=== PATIENT | male | born 1945 | race Hispanic/Latino ===

== ENCOUNTER 2020-02-20 10:29 | Inpatient (IN) | payer OTHER ==
[~2020-02-20] VITALS: Ht 172.7 cm; Wt 103.7 kg
[2020-02-20] MEDS ORDERED: HEPARIN SODIUM 1000UNIT/ML 10ML VIAL ONE (10:34)
[2020-02-20] MEDS ORDERED: BIVALIRUDIN 250 MG/VIAL IV ONE (10:34)
[2020-02-20] MEDS ORDERED: MIDAZOLAM HCL 1 MG/ML 2ML VIAL ONE (10:34)
[2020-02-20] MEDS ORDERED: ATROPINE SULFATE 0.1 MG/ML 10 ML SYG IVP ONE (10:34)
[2020-02-20] MEDS ORDERED: IOHEXOL 350 MG/ML 100ML INFUS..BTL IV ONE (10:34)
[2020-02-20] MEDS ORDERED: SODIUM BICARB 50MEQ 50ML VIAL ONE (10:34)
[2020-02-20] MEDS ORDERED: ONDANSETRON HCL 4 MG/2 ML VIAL ONE (10:34)
[2020-02-20] MEDS ORDERED: METOPROLOL TARTRATE 1 MG/ML 5ML VIAL IV ONE (10:35)
[2020-02-20] MEDS ORDERED: DOPAMINE HCL 400 MG/D5%-WATER 0 ML IV ONE (10:35)
[2020-02-20] MEDS ORDERED: LIDOCAINE HCL 2% 20ML ONE (10:35)
[2020-02-20 10:47] LABS: BASOPHILS % (AUTO) 0.1 % (0.0-5.0); EOSINOPHILS % (AUTO) 0.1 % (0.0-8.0); HEMATOCRIT 24.6 % (42-54); LYMPHOCYTES % (AUTO) 9.8 % (21.0-51.0); MEAN CORPUSCULAR HEMOGLOBIN 28.6 pg (27.0-33.0); MEAN CORPUSCULAR HGB CONC 33.7 g/dL (32.0-36.0); MEAN CORPUSCULAR VOLUME 84.8 fL (79-99); MONOCYTES % (AUTO) 10.1 % (3.0-13.0); PLATELET COUNT (AUTO) 215 K/uL (130-400); RED CELL DISTRIBUTION WIDTH 14.1 % (11.0-15.5); WHITE BLOOD COUNT (AUTO) 10.7 K/uL (4.8-10.8)
[2020-02-20 10:57] LABS: CREATININE 3.5 mg/dL (0.5-1.5); POTASSIUM 3.2 mmol/L (3.5-5.1)
[2020-02-20] MEDS ORDERED: FUROSEMIDE 10 MG/ML 4ML VIAL ONE (11:00)
[2020-02-20] MEDS ORDERED: POTASSIUM CHLORIDE 20 MEQ ERTAB PO SCH (11:15)
[2020-02-20] MEDS ORDERED: FUROSEMIDE 10 MG/ML 4ML VIAL IV SCH ×2 (11:15→17:15)
[2020-02-20 11:20] LABS: ALBUMIN 3.2 g/dL (3.5-5.0); BILIRUBIN,TOTAL 0.6 mg/dL (0.2-1.0); TOTAL PROTEIN, SERUM 6.7 g/dL (6.0-8.3)
[2020-02-20] MEDS: METOPROLOL TARTRATE 25 MG TAB PO SCH ×2 (11:30→21:00)
[2020-02-20 11:35] LABS: INR 1.01 (0.85-1.15); PARTIAL THROMBOPLASTIN TIME 26.8 SEC (26.3-35.5); PROTHROMBIN TIME 10.9 SEC (9.6-11.6)
[2020-02-20] MEDS ORDERED: LEVOFLOXACIN 500 MG/D5W 100 ML 100 ML ONE (11:38)
[2020-02-20] MEDS ORDERED: AMIODARONE HCL 50 MG/ML 3 ML VIAL ONE ×2 (11:38→22:32)
[2020-02-20] MEDS ORDERED: SODIUM CHLORIDE 0.9% 100 ML IV ONE (11:39)
[2020-02-20] MEDS ORDERED: AMIODARONE HCL 150 MG in DEXTROSE 5%-WATER 100 ML IV SCH (11:45)
[2020-02-20] MEDS ORDERED: AMIODARONE HCL 360 MG in DEXTROSE 5%-WATER 200 ML IV SCH (11:45)
[2020-02-20] MEDS ORDERED: POTASSIUM CHLORIDE 20 MEQ ERTAB PO ONE ×3 (11:46→21:09)
[2020-02-20 11:59] LABS: APPEARANCE,URINE TURBID (CLEAR); BILIRUBIN,URINE NEGATIVE (NEGATIVE); COLOR,URINE YELLOW (YELLOW); GLUCOSE, URINE (UA) NEGATIVE (NEGATIVE); KETONES,URINE NEGATIVE (NEGATIVE); LEUKOCYTE ESTERASE ,URINE NEGATIVE (NEGATIVE); NITRATE,URINE NEGATIVE (NEGATIVE); OCCULT BLOOD,URINE NEGATIVE (NEGATIVE); PH,URINE 5.5 (5.0-8.0); PROTEIN,URINE 100 mg/dL (NEGATIVE); UROBILINOGEN,URINE 0.2 mg/dL (0.2-1.0)
[2020-02-20 12:26] LABS: ABG BASE EXCESS 0.1 mmol/L (-2.0-3.0); ABG HCO3 23.5 mmol/L (21.0-28.0); ABG OXYGEN SATURATION 99.7 % (95.0-99.0); ABG PCO2 35 mmHg (35-48)
[2020-02-20 12:30] LABS: AMORPHOUS SEDIMENT,UR Many /LPF (None Seen); BACTERIA,URINE Few /HPF (None Seen); RBC,URINE 0-1 /HPF (0-1); SQUAMOUS EPITHELIAL CELL,UR Rare /HPF (0-2); WBC,URINE 0-1 /HPF (0-1)
[2020-02-20] MEDS: DOXYCYCLINE 100MG+NS 250ML 250 ML IV SCH (13:15)
[2020-02-20] MEDS ORDERED: OSELTAMIVIR PHOSPHATE 75 MG CAP PO SCH (13:15)
[2020-02-20] MEDS ORDERED: NITROGLYCERIN 0.4 MG SL TAB SL PRN (13:15)
[2020-02-20] MEDS: ASPIRIN 325 MG TABLET PO SCH (13:30)
[2020-02-20] MEDS: CEFEPIME HCL 1 GM VIAL IVP SCH (13:30)
[2020-02-20] MEDS ORDERED: COMPOUND PO MISCELLANEOUS 1 EACH MISC MISC PRN (13:30)
[2020-02-20] MEDS ORDERED: ROCURONIUM BROMIDE 10MG/1ML 5ML VL IV ONE (13:35)
[2020-02-20] MEDS ORDERED: SUCCINYLCHOLINE CHLORIDE 20 MG/ML 10 ML VIAL IVP ONE (13:35)
[2020-02-20] MEDS: ENOXAPARIN SODIUM 100 MG/1 ML SQ SCH (14:00)
[2020-02-20] MEDS: OSELTAMIVIR SUSP 15 MG/ML (6 CAPS/29ML) PO SCH ×2 (14:00)
[2020-02-20] MEDS ORDERED: ENOXAPARIN SODIUM 100 MG/1 ML SQ ONE (14:18)
[2020-02-20] MEDS ORDERED: CEFEPIME HCL 1 GM VIAL ONE (15:31)
[2020-02-20] MEDS ORDERED: DOXYCYCLINE 100MG+NS 250ML 250 ML IV ONE (15:31)
[2020-02-20] MEDS: INSULIN HUMULIN R 100 UNIT/ML 3ML SQ SCH ×2 (16:30→21:00)
[2020-02-20] MEDS: POTASSIUM CHLORIDE 20 MEQ ERTAB PO SCH (17:15)
[2020-02-20] MEDS: ATORVASTATIN CALCIUM 40 MG TABLET PO SCH (21:00)
[2020-02-20] MEDS ORDERED: ATORVASTATIN CALCIUM 40 MG TABLET ONE (21:10)
[2020-02-20] MEDS ORDERED: METOPROLOL TARTRATE 25 MG TAB ONE (21:10)
[2020-02-20] MEDS ORDERED: DEXTROSE 5%-WATER 500 ML IV ONE (22:39)
--- NOTE | 2020-02-20 23:50 | NUR ---
Patient Arrived From ER Patient with shortness of breath with an N95 mask on; running a Lasix drip and Amio drip with 3 PIV, unable to hold a conversation due to the shortness of breath asking for the BIPAP to be place back on. Patient on enhanced precaution due to role out Covid-19 with possible pneumonia.
[2020-02-20 23:57] VITALS: BP 109/52
[2020-02-21] VITALS (29 sets, daily range): BP systolic 92–158; BP diastolic 41–97
[2020-02-21] MEDS ORDERED: SODIUM CHLORIDE 0.9% 100 ML IV ONE (00:24)
[2020-02-21] MEDS ORDERED: FUROSEMIDE 10 MG/ML 4ML VIAL ONE (00:26)
[2020-02-21] MEDS ORDERED: FUROSEMIDE 10 MG/ML 2ML VIAL ONE (00:26)
[2020-02-21] MEDS ORDERED: DOXYCYCLINE 100MG+NS 250ML 250 ML IV ONE (01:22)
[2020-02-21] MEDS: DOXYCYCLINE 100MG+NS 250ML 250 ML IV SCH ×2 (01:42→13:21)
[2020-02-21 04:22] LABS: ABG BASE EXCESS -0.2 mmol/L (-2.0-3.0); ABG HCO3 23.4 mmol/L (21.0-28.0); ABG OXYGEN SATURATION 98.9 % (95.0-99.0); ABG PCO2 35 mmHg (35-48)
[2020-02-21 04:58] LABS: HEMATOCRIT 21.4 % (42-54); MEAN CORPUSCULAR HGB CONC 32.2 g/dL (32.0-36.0); PLATELET COUNT (AUTO) 173 K/uL (130-400); RED BLOOD CELL COUNT(AUTO) 2.46 MIL/uL (4.50-6.20); RED CELL DISTRIBUTION WIDTH 14.6 % (11.0-15.5); WHITE BLOOD COUNT (AUTO) 9.3 K/uL (4.8-10.8)
[2020-02-21 05:09] LABS: BAND NEUTROPHILS % (MANUAL) 4 % (0-2); LYMPHOCYTES % (MANUAL) 14 % (22-44); MAN.DIFF COMMENT-IMPRESSION MANUAL DIFFERENTIAL; MONOCYTES % (MANUAL) 2 % (2-9); PLATELET MORPHOLOGY COMMENT ADEQUATE; SEGMENTED NEUTROPHILS % 80 % (40-70)
[2020-02-21 05:13] LABS: INR 1.24 (0.85-1.15); PARTIAL THROMBOPLASTIN TIME 33.4 SEC (26.3-35.5); PROTHROMBIN TIME 13.3 SEC (9.6-11.6)
[2020-02-21 05:38] LABS: ALANINE AMINOTRANSFERASE 36 U/L (12-78); ASPARTATE AMINOTRANSFERASE 131 U/L (10-37); BILIRUBIN,TOTAL 0.4 mg/dL (0.2-1.0); CARBON DIOXIDE 18 mmol/L (21-32); CHLORIDE 112 mmol/L (101-111); CREATININE 2.9 mg/dL (0.5-1.5); GLOMERULAR FILTR. RATE CALC 23 mL/min (>60); GLUCOSE,RANDOM 124 mg/dL (70-105); HDL CHOLESTEROL 43 mg/dL (29-71); LDL DIRECT 41 mg/dL (0-99); MYOGLOBIN 341 ng/mL (10-92); PHOSPHORUS 2.1 mg/dL (2.5-4.9); SODIUM SERUM 144 mmol/L (136-145); THYROID STIMULATING HORMONE 0.28 uIU/mL (0.36-3.74); TOTAL PROTEIN, SERUM 4.7 g/dL (6.0-8.3); UREA NITROGEN, BLOOD 40 mg/dL (7-18); URIC ACID 5.7 mg/dL (2.6-7.2)
[2020-02-21 05:42] LABS: POTASSIUM 2.7 mmol/L (3.5-5.1)
[2020-02-21 05:52] LABS: CREATINE KINASE, TOTAL 588 U/L (21-232)
[2020-02-21 06:09] LABS: CHOLESTEROL < 50 mg/dL (<200); TRIGLYCERIDES < 15 mg/dL (30-200)
[2020-02-21] MEDS: POTASSIUM CHLORIDE 10% ELIXIR 20 MEQ/15 ML UDCUP PO PRN ×2 (06:09→08:07)
[2020-02-21 06:19] LABS: TROPONIN I 56.04 ng/mL (0.00-0.06)
[2020-02-21 06:23] LABS: % IRON SATURATION 8.4 % (30-44)
[2020-02-21] MEDS: INSULIN HUMULIN R 100 UNIT/ML 3ML SQ SCH ×4 (06:30→21:00)
[2020-02-21] MEDS: METOPROLOL TARTRATE 25 MG TAB PO SCH ×2 (08:05→21:15)
[2020-02-21] MEDS: ASPIRIN 325 MG TABLET PO SCH (08:05)
[2020-02-21] MEDS: Vitamin B Complex/Vit C/Folic Acid PO SCH ×2 (08:06)
[2020-02-21] MEDS: POTASSIUM CHLORIDE 20 MEQ ERTAB PO SCH ×6 (08:07→18:00)
[2020-02-21] MEDS: ENOXAPARIN SODIUM 100 MG/1 ML SQ SCH (08:08)
[2020-02-21] MEDS: PANTOPRAZOLE 40 MG/VIAL IVP SCH (08:10)
[2020-02-21] MEDS: OSELTAMIVIR SUSP 15 MG/ML (6 CAPS/29ML) PO SCH ×2 (09:18)
[2020-02-21] MEDS ORDERED: NEUTRA-PHOS PACKET 1 EACH ONE (09:19)
[2020-02-21] MEDS: NEUTRA-PHOS PACKET 1 EACH PO SCH ×3 (10:13→21:15)
[2020-02-21 10:48] LABS: POTASSIUM 4.1 mmol/L (3.5-5.1)
[2020-02-21] MEDS: CEFEPIME HCL 1 GM VIAL IVP SCH (12:33)
[2020-02-21] MEDS: FUROSEMIDE 100 MG in SODIUM CHLORIDE 0.9% 100 ML IV SCH ×2 (12:34→22:45)
[2020-02-21] MEDS ORDERED: POTASSIUM PHOS 15 mMOL+NS250ML 250 ML IV PRN (15:00)
--- NOTE | 2020-02-21 15:09 | NUR ---
CM Note SW attempted to reach, Germaine Garcia, emergency contact for patient to complete assessment but phone number was disconnected. SW will continue to follow up.
--- NOTE | 2020-02-21 16:00 | NUR ---
BEDSIDE REPORT GIVEN TO JAMILA MARTINEZ AND PATIENT TRANSFERRED TO ROOM 223; PATIENT'S SISTER NOTIFIED AND AWARE
--- NOTE | 2020-02-21 16:00 | NUR ---
TRANSFER FROM ICU RECEIVED PT FROM Stephanie HOROWITZ RN, PT IN HIGH STEPHENSON'S POSITION, WITH VENTI MASK IN PLACE, DOES NOT APPEAR TO BE IN ANY DISTRESS NOR ANY NEURO DEFICITS PRESENT. PT RESTING COMFORTABLY, CALL LIGHT WITHIN REACH.
[2020-02-21 16:09] LABS: HEMATOCRIT 26.7 % (42-54)
[2020-02-21 16:16] LABS: CREATININE 3.7 mg/dL (0.5-1.5); POTASSIUM 3.8 mmol/L (3.5-5.1)
[2020-02-21] MEDS: MAGNESIUM 2GM PREMIX 50ML 50 ML IV SCH (18:21)
--- NOTE | 2020-02-21 21:03 | NUR ---
DR. Rebollar doing rounds, saw patient. No new orders received. Addendum: 02/22/20 at 0257 by ERASTO BURT RN Doctor Rebollar states hemoglobin low due to possible lab error. Patient Hgb has been recollected X3 and Hgb is higher than 8. Will continue to monitor.
[2020-02-21] MEDS: AMIODARONE HCL 200 MG TABLET PO SCH (21:12)
[2020-02-21] MEDS: ATORVASTATIN CALCIUM 40 MG TABLET PO SCH (21:14)
[2020-02-21 21:44] LABS: HEMATOCRIT 25.3 % (42-54)
[2020-02-22] MEDS: DOXYCYCLINE 100MG+NS 250ML 250 ML IV SCH ×2 (00:31→13:15)
[2020-02-22 04:03] VITALS: BP 127/85
[2020-02-22 05:04] LABS: HEMATOCRIT 26.3 % (42-54); MEAN CORPUSCULAR HEMOGLOBIN 27.9 pg (27.0-33.0); MEAN CORPUSCULAR HGB CONC 31.9 g/dL (32.0-36.0); MEAN CORPUSCULAR VOLUME 87.4 fL (79-99); PLATELET COUNT (AUTO) 215 K/uL (130-400); RED BLOOD CELL COUNT(AUTO) 3.01 MIL/uL (4.50-6.20); RED CELL DISTRIBUTION WIDTH 14.8 % (11.0-15.5); WHITE BLOOD COUNT (AUTO) 11.7 K/uL (4.8-10.8)
[2020-02-22 05:24] LABS: ABG BASE EXCESS -1.1 mmol/L (-2.0-3.0); ABG HCO3 22.4 mmol/L (21.0-28.0); ABG OXYGEN SATURATION 98.2 % (95.0-99.0); ABG PCO2 34 mmHg (35-48)
[2020-02-22 05:45] LABS: ALBUMIN 2.6 g/dL (3.5-5.0); BILIRUBIN,TOTAL 0.6 mg/dL (0.2-1.0); CREATININE 3.7 mg/dL (0.5-1.5); PHOSPHORUS 3.4 mg/dL (2.5-4.9); POTASSIUM 3.3 mmol/L (3.5-5.1); TOTAL PROTEIN, SERUM 6.4 g/dL (6.0-8.3)
[2020-02-22] MEDS: INSULIN HUMULIN R 100 UNIT/ML 3ML SQ SCH ×4 (06:49→21:00)
--- NOTE | 2020-02-22 07:30 | NUR ---
ASSESSMENT ENCOUNTERED PT IN HIGH STEPHENSON'S POSITION, A&OX3, CALM COOPERATIVE AND DOES NOT APPEAR TO BE IN ANY DISTRESS NOR ANY NEURO DEFICITS PRESENT. PT ON BIPAP AND TRANSITIONING TO VM, PT DENIES PAIN, NAUSEA AND STATES HE IS BREATHING EASIER. PT IS ABLE TO TOLERATE FOODS, FLUIDS AND MEDICATIONS WITH NO THROAT CLEARING OR COUGH, CALL LIGHT WITHIN REACH.
[2020-02-22] MEDS: Vitamin B Complex/Vit C/Folic Acid PO SCH ×2 (09:00→11:33)
[2020-02-22 09:31] VITALS: BP 139/86
[2020-02-22] MEDS: ASPIRIN 325 MG TABLET PO SCH (11:32)
[2020-02-22] MEDS: ENOXAPARIN SODIUM 100 MG/1 ML SQ SCH (11:32)
[2020-02-22] MEDS: METOPROLOL TARTRATE 25 MG TAB PO SCH ×2 (11:33→21:28)
[2020-02-22] MEDS: PANTOPRAZOLE 40 MG/VIAL IVP SCH (11:34)
[2020-02-22] MEDS: POTASSIUM CHLORIDE 10% ELIXIR 20 MEQ/15 ML UDCUP PO PRN (11:34)
[2020-02-22] MEDS: OSELTAMIVIR SUSP 15 MG/ML (6 CAPS/29ML) PO SCH ×2 (11:35)
[2020-02-22] MEDS: AMIODARONE HCL 200 MG TABLET PO SCH ×2 (11:53→21:29)
[2020-02-22 11:55] VITALS: BP 148/88
[2020-02-22] MEDS: CEFEPIME HCL 1 GM VIAL IVP SCH (13:30)
[2020-02-22] MEDS: POTASSIUM CHLORIDE 20 MEQ ERTAB PO SCH (14:13)
[2020-02-22] MEDS: FUROSEMIDE 100 MG in SODIUM CHLORIDE 0.9% 100 ML IV SCH (14:57)
[2020-02-22 16:29] VITALS: BP 146/71
[2020-02-22 19:51] VITALS: BP 145/80
[2020-02-22] MEDS: ATORVASTATIN CALCIUM 40 MG TABLET PO SCH (21:29)
[2020-02-22] MEDS: IRON SUCROSE COMPLEX 100 MG in SODIUM CHLORIDE 0.9% 50 ML IV SCH (21:29)
[2020-02-22 23:14] VITALS: BP 103/66
[2020-02-22] MEDS: FUROSEMIDE 10 MG/ML 4ML VIAL IV SCH (23:20)
[2020-02-23] MEDS: DOXYCYCLINE 100MG+NS 250ML 250 ML IV SCH ×2 (01:04→11:53)
[2020-02-23 03:59] VITALS: BP 144/93
[2020-02-23 04:26] LABS: HEMATOCRIT 26.6 % (42-54); MEAN CORPUSCULAR HEMOGLOBIN 27.5 pg (27.0-33.0); MEAN CORPUSCULAR HGB CONC 31.6 g/dL (32.0-36.0); MEAN CORPUSCULAR VOLUME 86.9 fL (79-99); PLATELET COUNT (AUTO) 229 K/uL (130-400); RED BLOOD CELL COUNT(AUTO) 3.06 MIL/uL (4.50-6.20); RED CELL DISTRIBUTION WIDTH 14.7 % (11.0-15.5); WHITE BLOOD COUNT (AUTO) 10.4 K/uL (4.8-10.8)
[2020-02-23 04:38] LABS: CREATININE 3.7 mg/dL (0.5-1.5)
[2020-02-23] MEDS: POTASSIUM CHLORIDE 20MEQ/100ML 100 ML IV PRN (05:18)
[2020-02-23] MEDS: INSULIN HUMULIN R 100 UNIT/ML 3ML SQ SCH ×4 (07:30→21:00)
[2020-02-23 08:04] VITALS: BP 155/83
[2020-02-23] MEDS: ASPIRIN 325 MG TABLET PO SCH (09:11)
[2020-02-23] MEDS: PANTOPRAZOLE 40 MG/VIAL IVP SCH (09:11)
[2020-02-23] MEDS: AMIODARONE HCL 200 MG TABLET PO SCH ×2 (09:11→21:28)
[2020-02-23] MEDS: Vitamin B Complex/Vit C/Folic Acid PO SCH (09:12)
[2020-02-23] MEDS: METOPROLOL TARTRATE 25 MG TAB PO SCH (09:12)
[2020-02-23] MEDS: ENOXAPARIN SODIUM 100 MG/1 ML SQ SCH (09:13)
[2020-02-23] MEDS: OSELTAMIVIR SUSP 15 MG/ML (6 CAPS/29ML) PO SCH ×2 (09:14)
[2020-02-23] MEDS: POTASSIUM CHLORIDE 10% ELIXIR 20 MEQ/15 ML UDCUP PO PRN ×2 (09:17→22:53)
[2020-02-23] MEDS: FUROSEMIDE 10 MG/ML 4ML VIAL IV SCH ×2 (09:17→14:43)
[2020-02-23 11:40] VITALS: BP 163/81
[2020-02-23] MEDS: CEFEPIME HCL 1 GM VIAL IVP SCH (11:54)
[2020-02-23] MEDS ORDERED: CARVEDILOL 6.25 MG TABLET PO STA (15:25)
[2020-02-23 16:59] VITALS: BP 183/107
[2020-02-23] MEDS: POTASSIUM CHLORIDE 20 MEQ ERTAB PO SCH (17:44)
[2020-02-23 20:24] VITALS: BP 164/90
[2020-02-23] MEDS: IRON SUCROSE COMPLEX 100 MG in SODIUM CHLORIDE 0.9% 50 ML IV SCH (21:29)
[2020-02-23] MEDS: ATORVASTATIN CALCIUM 40 MG TABLET PO SCH (22:41)
[2020-02-23] MEDS: CARVEDILOL 6.25 MG TABLET PO SCH (22:42)
[2020-02-24] MEDS: FUROSEMIDE 10 MG/ML 4ML VIAL IV SCH ×4 (00:19→23:24)
[2020-02-24] MEDS: DOXYCYCLINE 100MG+NS 250ML 250 ML IV SCH ×2 (00:20→12:39)
[2020-02-24 00:26] VITALS: BP 137/76
[2020-02-24 03:56] VITALS: BP 156/85
[2020-02-24 06:12] LABS: HEMATOCRIT 27.6 % (42-54); MEAN CORPUSCULAR HEMOGLOBIN 27.6 pg (27.0-33.0); MEAN CORPUSCULAR HGB CONC 31.5 g/dL (32.0-36.0); MEAN CORPUSCULAR VOLUME 87.6 fL (79-99); PLATELET COUNT (AUTO) 270 K/uL (130-400); RED BLOOD CELL COUNT(AUTO) 3.15 MIL/uL (4.50-6.20); RED CELL DISTRIBUTION WIDTH 14.8 % (11.0-15.5); WHITE BLOOD COUNT (AUTO) 9.8 K/uL (4.8-10.8)
[2020-02-24 07:02] LABS: CREATININE 3.6 mg/dL (0.5-1.5); MAGNESIUM 1.9 mg/dL (1.80-2.40); PHOSPHORUS 3.2 mg/dL (2.5-4.9); POTASSIUM 3.4 mmol/L (3.5-5.1)
[2020-02-24] MEDS: INSULIN HUMULIN R 100 UNIT/ML 3ML SQ SCH ×4 (07:15→21:00)
[2020-02-24 08:28] VITALS: BP 150/82
[2020-02-24] MEDS ORDERED: CLOPIDOGREL BISULFATE 300 MG TAB PO SCH (08:30)
[2020-02-24] MEDS: AMIODARONE HCL 200 MG TABLET PO SCH ×2 (08:51→23:30)
[2020-02-24] MEDS: Vitamin B Complex/Vit C/Folic Acid PO SCH (08:51)
[2020-02-24] MEDS: PANTOPRAZOLE 40 MG/VIAL IVP SCH (08:52)
[2020-02-24] MEDS: OSELTAMIVIR SUSP 15 MG/ML (6 CAPS/29ML) PO SCH ×2 (08:52)
[2020-02-24] MEDS: CARVEDILOL 6.25 MG TABLET PO SCH ×2 (08:53→21:00)
[2020-02-24] MEDS: ASPIRIN 81MG TAB.CHEW PO SCH (09:12)
[2020-02-24] MEDS: ENOXAPARIN SODIUM 30 MG/0.3 ML SQ SCH (09:13)
[2020-02-24 12:01] VITALS: BP 152/76
[2020-02-24] MEDS: CEFEPIME HCL 1 GM VIAL IVP SCH (12:38)
[2020-02-24] MEDS: POTASSIUM CHLORIDE 20 MEQ ERTAB PO SCH ×2 (12:45→16:21)
[2020-02-24 16:00] VITALS: BP 146/78
[2020-02-24 20:08] VITALS: BP 157/92
--- NOTE | 2020-02-24 22:00 | NUR ---
PATIENT IS A TRANSFER FROM 223, A^O3, NO COMPLAINS OF BEING IN DISTRESS OR IN ANY FORMS OF PAIN, IS ON BIPAP O2 SATS AT 100%, NO FAMILY AT BEDSIDE.
[2020-02-24] MEDS: IRON SUCROSE COMPLEX 100 MG in SODIUM CHLORIDE 0.9% 50 ML IV SCH (23:24)
[2020-02-24] MEDS: ATORVASTATIN CALCIUM 40 MG TABLET PO SCH (23:29)
[2020-02-25] VITALS: BP 157/94
[2020-02-25] MEDS: DOXYCYCLINE 100MG+NS 250ML 250 ML IV SCH ×2 (01:07→12:19)
[2020-02-25 03:56] LABS: MEAN CORPUSCULAR HEMOGLOBIN 27.8 pg (27.0-33.0); MEAN CORPUSCULAR HGB CONC 31.7 g/dL (32.0-36.0); MEAN CORPUSCULAR VOLUME 87.6 fL (79-99); NUCLEATED RED BLOOD CELLS 0.3 % (0.0-0.19); PLATELET COUNT (AUTO) 299 K/uL (130-400); RED BLOOD CELL COUNT(AUTO) 3.31 MIL/uL (4.50-6.20); RED CELL DISTRIBUTION WIDTH 14.9 % (11.0-15.5); WHITE BLOOD COUNT (AUTO) 11.8 K/uL (4.8-10.8)
[2020-02-25 04:00] VITALS: BP 156/87
[2020-02-25 04:07] LABS: CREATININE 3.6 mg/dL (0.5-1.5); POTASSIUM 3.4 mmol/L (3.5-5.1)
[2020-02-25] MEDS: FUROSEMIDE 10 MG/ML 4ML VIAL IV SCH ×3 (05:22→21:36)
[2020-02-25] MEDS: INSULIN HUMULIN R 100 UNIT/ML 3ML SQ SCH ×4 (06:08→21:00)
[2020-02-25] MEDS: PANTOPRAZOLE 40 MG/VIAL IVP SCH (07:32)
[2020-02-25] MEDS: ENOXAPARIN SODIUM 30 MG/0.3 ML SQ SCH (07:35)
[2020-02-25] MEDS: Vitamin B Complex/Vit C/Folic Acid PO SCH (07:35)
[2020-02-25] MEDS: AMIODARONE HCL 200 MG TABLET PO SCH ×2 (07:35→19:52)
[2020-02-25] MEDS: CLOPIDOGREL BISULFATE 75 MG TAB PO SCH (07:36)
[2020-02-25] MEDS: CARVEDILOL 6.25 MG TABLET PO SCH ×2 (07:36→19:52)
[2020-02-25] MEDS: ASPIRIN 81MG TAB.CHEW PO SCH (07:36)
[2020-02-25] MEDS: POTASSIUM CHLORIDE 20 MEQ ERTAB PO SCH ×2 (07:36→11:54)
[2020-02-25] MEDS: OSELTAMIVIR SUSP 15 MG/ML (6 CAPS/29ML) PO SCH ×2 (07:37)
[2020-02-25 07:45] VITALS: BP 140/82
--- NOTE | 2020-02-25 07:45 | NUR ---
ASSESSMENT PT IS AAOX3 RESTING IN BED. PATIENT IS ON BIPAP, TACHYPNIC, SOB ON EXERTION. AM MEDS GIVEN WITH WATER AND PLACED BACK ON BIPAP. LUNG SOUNDS COARSE TO ALL LOBES. O2 SAT <92 ON BIPAP. HOB UP AT 35 DEGREES. SIDE RAILS UP X4 DOOR OPEN BLINDS OPEN, CALL LIGHT WITHIN REACH. DR PEÑA ROUNDED, SAW PATIENT ORDERS RECEIVED.
[2020-02-25] MEDS: MILRINONE-D5W 20 MG/100 ML 100 ML IV SCH ×3 (08:58→21:36)
[2020-02-25 11:26] VITALS: BP 150/85
[2020-02-25] MEDS: CEFEPIME HCL 1 GM VIAL IVP SCH (12:19)
--- NOTE | 2020-02-25 12:30 | NUR ---
DR KAUR ROUNDED SAW PATIENT ORDERS RECEIVED
[2020-02-25 15:20] VITALS: BP 144/87
--- NOTE | 2020-02-25 18:10 | NUR ---
HR VIA TELE AFIB 140S DR PEÑA MADE AWARE, ORDERS RECEIVED
[2020-02-25] MEDS ORDERED: AMIODARONE HCL 150 MG in DEXTROSE 5%-WATER 100 ML IV SCH (18:15)
[2020-02-25] MEDS ORDERED: PHARMACY COMMUNICATION MISC SCH (18:15)
[2020-02-25] MEDS: ATORVASTATIN CALCIUM 40 MG TABLET PO SCH (19:51)
[2020-02-25] MEDS: IRON SUCROSE COMPLEX 100 MG in SODIUM CHLORIDE 0.9% 50 ML IV SCH (19:52)
[2020-02-25 20:09] VITALS: BP 151/76
[2020-02-26] MEDS: DOXYCYCLINE 100MG+NS 250ML 250 ML IV SCH ×2 (00:22→12:39)
[2020-02-26 03:52] VITALS: BP 154/96
[2020-02-26 03:52] LABS: HEMATOCRIT 26.2 % (42-54); MEAN CORPUSCULAR HEMOGLOBIN 27.4 pg (27.0-33.0); MEAN CORPUSCULAR HGB CONC 31.3 g/dL (32.0-36.0); MEAN CORPUSCULAR VOLUME 87.6 fL (79-99); NUCLEATED RED BLOOD CELLS 0.2 % (0.0-0.19); PLATELET COUNT (AUTO) 247 K/uL (130-400); RED BLOOD CELL COUNT(AUTO) 2.99 MIL/uL (4.50-6.20); RED CELL DISTRIBUTION WIDTH 15.1 % (11.0-15.5); WHITE BLOOD COUNT (AUTO) 11.4 K/uL (4.8-10.8)
--- NOTE | 2020-02-26 03:55 | NUR ---
patients heart rate up and down, 100 to 130's. patient asymptomatic continue to monitor
[2020-02-26 04:13] LABS: CREATININE 3.8 mg/dL (0.5-1.5); MAGNESIUM 1.9 mg/dL (1.80-2.40); POTASSIUM 3.2 mmol/L (3.5-5.1)
[2020-02-26] MEDS: FUROSEMIDE 10 MG/ML 4ML VIAL IV SCH ×2 (05:25→21:01)
[2020-02-26] MEDS: INSULIN HUMULIN R 100 UNIT/ML 3ML SQ SCH ×4 (06:25→21:00)
[2020-02-26 07:51] VITALS: BP 138/83
[2020-02-26] MEDS ORDERED: FUROSEMIDE 10 MG/ML 4ML VIAL IV SCH (09:30)
--- NOTE | 2020-02-26 09:30 | NUR ---
BIPAP REAPPLIED AT PREVIOUS SETTINGS WITH FIO2 AT 35%. CALL LIGHT WITHIN REACH. Addendum: 02/26/20 at 2019 by ANA SENIOR RN RN CORRECTION:TIME SHOULD READ 1930.
[2020-02-26] MEDS: AMIODARONE HCL 200 MG TABLET PO SCH (09:42)
[2020-02-26] MEDS: Vitamin B Complex/Vit C/Folic Acid PO SCH (09:42)
[2020-02-26] MEDS: ASPIRIN 81MG TAB.CHEW PO SCH (09:42)
[2020-02-26] MEDS: PANTOPRAZOLE 40 MG/VIAL IVP SCH (09:42)
[2020-02-26] MEDS: CARVEDILOL 6.25 MG TABLET PO SCH ×2 (09:43→21:02)
[2020-02-26] MEDS: CLOPIDOGREL BISULFATE 75 MG TAB PO SCH (09:43)
[2020-02-26] MEDS: ENOXAPARIN SODIUM 30 MG/0.3 ML SQ SCH (09:43)
[2020-02-26] MEDS: POTASSIUM CHLORIDE 20 MEQ ERTAB PO SCH (09:44)
[2020-02-26 09:45] LABS: ABG BASE EXCESS 0.4 mmol/L (-2.0-3.0); ABG HCO3 22.5 mmol/L (21.0-28.0); ABG OXYGEN SATURATION 99.2 % (95.0-99.0); ABG PCO2 30 mmHg (35-48)
--- NOTE | 2020-02-26 10:15 | NUR ---
REMOVED BIPAP AND PROVIDED WITH APPLE JUICE AND WATER. PT. WITH EMESIS AFTER FLUID INTAKE. CARE PROVIDED.
[2020-02-26] MEDS: MILRINONE-D5W 20 MG/100 ML 100 ML IV SCH (10:16)
[2020-02-26] MEDS ORDERED: ONDANSETRON HCL 4 MG/2 ML VIAL IVP PRN (10:45)
[2020-02-26] MEDS ORDERED: HEPARIN 25000 UNITS/250 ML D5W 250 ML IV SCH (11:00)
--- NOTE | 2020-02-26 11:30 | NUR ---
Missy HOLGUIN, BULL FIDDLE PLAYER IN ROOM SPEAKING WITH PT.
[2020-02-26] MEDS ORDERED: ONDANSETRON HCL 4 MG/2 ML VIAL ONE (11:32)
[2020-02-26] MEDS ORDERED: ENOXAPARIN SODIUM 100 MG/1 ML SQ SCH ×4 (11:37→21:00)
[2020-02-26 11:41] VITALS: BP 132/74
[2020-02-26] MEDS ORDERED: COMPOUND IV MISC 1 EACH IVSOLN MISC PRN (11:45)
[2020-02-26] MEDS: CEFEPIME HCL 1 GM VIAL IVP SCH (12:39)
--- NOTE | 2020-02-26 13:14 | NUR ---
DR. Bradford TRAN AND Missy HOLGUIN INTERMEDIATE ACCOUNTANT IN ROOM SPEAKING WITH PT. RE:PLAN OF CARE. QUESTIONS ANSWERED BY DR. Bradford TRAN.
[2020-02-26 15:26] VITALS: BP 103/63
[2020-02-26] MEDS: HEPARIN SODIUM 5000UNIT/ML 1ML VIAL SQ SCH (15:29)
--- NOTE | 2020-02-26 16:42 | NUR ---
CM NOTE SW attempted to contact emergency contact listed on face sheet for patient but all numbers listed: [phone] and [phone] are disconnected. RERE spoke to patient's nurse, Waylon and he stated that patient is unable to talk on phone due to being on Bi-pap. Waylon also informed SW that there is no additional phone numbers for patient. SW will continue to complete assessment at a later date when patient is more stable.
--- NOTE | 2020-02-26 17:40 | NUR ---
BIPAP REMOVED PER PT. REQUEST. WILL ATTEMPT TO EAT DINNER. PLACED ON VM AT 50%; INSTRUCTED ON VM ALTERNATING WITH BITES OF FOOD, VERBALIZED UNDERSTANDING.
--- NOTE | 2020-02-26 17:50 | NUR ---
SITTING UP IN BED EATING DINNER W/O C/O. NO DISTRESS NOTED. CALL LIGHT WITHIN REACH.
[2020-02-26 19:59] VITALS: BP 113/56
[2020-02-26] MEDS: ATORVASTATIN CALCIUM 40 MG TABLET PO SCH (21:01)
[2020-02-26] MEDS: IRON SUCROSE COMPLEX 100 MG in SODIUM CHLORIDE 0.9% 50 ML IV SCH (21:01)
[2020-02-26 23:56] VITALS: BP 145/75
[2020-02-27] MEDS: DOXYCYCLINE 100MG+NS 250ML 250 ML IV SCH ×2 (00:22→13:10)
[2020-02-27] MEDS: HEPARIN SODIUM 5000UNIT/ML 1ML VIAL SQ SCH ×2 (01:34→13:18)
[2020-02-27 04:02] LABS: HEMATOCRIT 24.6 % (42-54); MEAN CORPUSCULAR HEMOGLOBIN 28.4 pg (27.0-33.0); MEAN CORPUSCULAR HGB CONC 31.7 g/dL (32.0-36.0); MEAN CORPUSCULAR VOLUME 89.5 fL (79-99); PLATELET COUNT (AUTO) 223 K/uL (130-400); RED BLOOD CELL COUNT(AUTO) 2.75 MIL/uL (4.50-6.20); RED CELL DISTRIBUTION WIDTH 15.1 % (11.0-15.5); WHITE BLOOD COUNT (AUTO) 10.4 K/uL (4.8-10.8)
[2020-02-27 04:06] LABS: CREATININE 3.9 mg/dL (0.5-1.5); POTASSIUM 3.4 mmol/L (3.5-5.1)
[2020-02-27] MEDS: INSULIN HUMULIN R 100 UNIT/ML 3ML SQ SCH ×4 (05:35→21:00)
[2020-02-27 07:55] VITALS: BP 139/70
[2020-02-27] MEDS: PANTOPRAZOLE 40 MG/VIAL IVP SCH (07:57)
[2020-02-27] MEDS: FUROSEMIDE 10 MG/ML 4ML VIAL IV SCH ×2 (07:58→20:56)
[2020-02-27] MEDS: CARVEDILOL 6.25 MG TABLET PO SCH ×2 (07:58→21:06)
[2020-02-27] MEDS: Vitamin B Complex/Vit C/Folic Acid PO SCH (07:58)
[2020-02-27] MEDS: ASPIRIN 81MG TAB.CHEW PO SCH (07:58)
[2020-02-27] MEDS: POTASSIUM CHLORIDE 20 MEQ ERTAB PO SCH (07:59)
--- NOTE | 2020-02-27 10:19 | NUR ---
RD NOTIFICATION RD consults due to LOS X 7. Diet: GI soft/bland, pureed, Labs reviewed (BNP 1030, BUN 70, CRE 3.9, GFR 16). Meds reviewed. Skin is intact. Currently on Bipap with worsening resp. failure. Poor po intake. RD recommends to add 1200ml/d fluid restriction Add renal non dialysis to diet order Monitor po intake and tolerance, monitor labs RD will continue to monitor and follow up Addendum: 02/27/20 at [address] Amended: Links added.
--- NOTE | 2020-02-27 11:01 | NUR ---
DR. KAUR IN ROOM WITH PT.
[2020-02-27 11:34] VITALS: BP 133/65
[2020-02-27] MEDS: CEFEPIME HCL 1 GM VIAL IVP SCH (13:10)
[2020-02-27 15:21] VITALS: BP 140/83
[2020-02-27 19:49] VITALS: BP 152/84
[2020-02-27] MEDS ORDERED: EPOETIN ALFA 10,000 UNIT/ML VIAL SQ SCH (21:00)
[2020-02-27] MEDS: IRON SUCROSE COMPLEX 100 MG in SODIUM CHLORIDE 0.9% 50 ML IV SCH (21:02)
[2020-02-27] MEDS: ATORVASTATIN CALCIUM 40 MG TABLET PO SCH (21:06)
[2020-02-27 23:27] VITALS: BP 146/87
[2020-02-28] MEDS: HEPARIN SODIUM 5000UNIT/ML 1ML VIAL SQ SCH ×2 (02:00→13:45)
[2020-02-28] MEDS: DOXYCYCLINE 100MG+NS 250ML 250 ML IV SCH ×2 (03:04→13:44)
[2020-02-28 03:28] VITALS: BP 150/80
[2020-02-28 03:58] LABS: MEAN CORPUSCULAR HEMOGLOBIN 27.1 pg (27.0-33.0); MEAN CORPUSCULAR HGB CONC 30.4 g/dL (32.0-36.0); MEAN CORPUSCULAR VOLUME 89.1 fL (79-99); PLATELET COUNT (AUTO) 231 K/uL (130-400); RED BLOOD CELL COUNT(AUTO) 3.03 MIL/uL (4.50-6.20); RED CELL DISTRIBUTION WIDTH 15.3 % (11.0-15.5); WHITE BLOOD COUNT (AUTO) 10.4 K/uL (4.8-10.8)
[2020-02-28 04:08] LABS: CREATININE 3.9 mg/dL (0.5-1.5)
[2020-02-28 04:11] LABS: POTASSIUM 2.9 mmol/L (3.5-5.1)
[2020-02-28 04:23] LABS: ABG BASE EXCESS -0.6 mmol/L (-2.0-3.0); ABG HCO3 23.8 mmol/L (21.0-28.0); ABG OXYGEN SATURATION 93.8 % (95.0-99.0); ABG PCO2 39 mmHg (35-48)
[2020-02-28] MEDS: INSULIN HUMULIN R 100 UNIT/ML 3ML SQ SCH ×4 (06:19→21:00)
[2020-02-28] MEDS: POTASSIUM CHLORIDE 20 MEQ ERTAB PO SCH (06:22)
[2020-02-28 07:54] VITALS: BP 155/87
[2020-02-28] MEDS: PANTOPRAZOLE 40 MG/VIAL IVP SCH (09:52)
[2020-02-28] MEDS: Vitamin B Complex/Vit C/Folic Acid PO SCH (09:53)
[2020-02-28] MEDS: ASPIRIN 81MG TAB.CHEW PO SCH (09:53)
[2020-02-28] MEDS: FUROSEMIDE 10 MG/ML 4ML VIAL IV SCH ×2 (09:53→20:05)
[2020-02-28] MEDS: CARVEDILOL 6.25 MG TABLET PO SCH ×2 (09:54→20:05)
[2020-02-28] MEDS: POTASSIUM CHLORIDE 20 MEQ ERTAB PO PRN (09:54)
[2020-02-28 12:16] VITALS: BP 151/92
[2020-02-28] MEDS: CEFEPIME HCL 1 GM VIAL IVP SCH (13:44)
--- NOTE | 2020-02-28 16:03 | NUR ---
DC PLAN VISITED WITH PATIENT. PATIENT ON 35 % 02 ON BIPAP SLEEPING. TRIED CALLING ROOM SINCE HE IS ON CONTACT PRECAUTIONS. NO ANSWER. THE NUMBERS ON THE FACE SHEET ARE DISCONNECTED. PER NURSE A SISTER CALLED FOR PATIENT. BUT THEY DID NOT GET NUMBER. ASKED THEM TO GET NUMBER IF THEY CALL AGAIN. PER COMPLIANCE ASSISTANT SAID THAT THE MD SAID NO TO [facility]. RECOMMENDING SNF. PATIENT ON HIGH YANNICK 02 ON BIPAP. SAID TO WORK ON GETTING PATIENT WEANED DOWN. CM WILL CONTINUE TO FOLLOW. Addendum: 02/28/20 at 1612 by JERRICA DANGELO RN CM Amended: Links added.
[2020-02-28 16:32] VITALS: BP 140/91
[2020-02-28 19:37] VITALS: BP 161/96
[2020-02-28] MEDS: IRON SUCROSE COMPLEX 100 MG in SODIUM CHLORIDE 0.9% 50 ML IV SCH (20:05)
[2020-02-28] MEDS: ATORVASTATIN CALCIUM 40 MG TABLET PO SCH (20:05)
[2020-02-29] VITALS (7 sets, daily range): BP systolic 124–158; BP diastolic 65–96
[2020-02-29] MEDS: DOXYCYCLINE 100MG+NS 250ML 250 ML IV SCH ×3 (03:36→21:21)
[2020-02-29] MEDS: HEPARIN SODIUM 5000UNIT/ML 1ML VIAL SQ SCH ×3 (03:46→21:51)
[2020-02-29 03:56] LABS: MEAN CORPUSCULAR HEMOGLOBIN 28.5 pg (27.0-33.0); MEAN CORPUSCULAR HGB CONC 31.7 g/dL (32.0-36.0); MEAN CORPUSCULAR VOLUME 90.1 fL (79-99); PLATELET COUNT (AUTO) 255 K/uL (130-400); RED BLOOD CELL COUNT(AUTO) 3.33 MIL/uL (4.50-6.20); RED CELL DISTRIBUTION WIDTH 15.6 % (11.0-15.5); WHITE BLOOD COUNT (AUTO) 11.3 K/uL (4.8-10.8)
[2020-02-29 04:18] LABS: CREATININE 3.7 mg/dL (0.5-1.5); POTASSIUM 3.2 mmol/L (3.5-5.1)
[2020-02-29] MEDS: POTASSIUM CHLORIDE 20 MEQ ERTAB PO PRN (05:44)
[2020-02-29] MEDS: INSULIN HUMULIN R 100 UNIT/ML 3ML SQ SCH ×4 (05:49→21:00)
[2020-02-29] MEDS: ASPIRIN 81MG TAB.CHEW PO SCH (09:39)
[2020-02-29] MEDS: Vitamin B Complex/Vit C/Folic Acid PO SCH (09:40)
[2020-02-29] MEDS: POTASSIUM CHLORIDE 20 MEQ ERTAB PO SCH (09:40)
[2020-02-29] MEDS: CARVEDILOL 6.25 MG TABLET PO SCH ×2 (09:40→21:21)
[2020-02-29] MEDS: PANTOPRAZOLE 40 MG/VIAL IVP SCH (09:40)
[2020-02-29] MEDS: CEFEPIME HCL 1 GM VIAL IVP SCH (09:41)
[2020-02-29] MEDS: FUROSEMIDE 10 MG/ML 4ML VIAL IV SCH (09:41)
--- NOTE | 2020-02-29 10:49 | NUR ---
DC PLAN VISITED WITH PATIENT. PATIENT STILL IN ISOLATION ON BIPAP. PER NURSING CAN NOT ANSWER PHONE. LET BENEFITS CLERK KNOW FOR HELP NEED. GAIL FOR FACILITY. THE NUMBERS WE HAVE ARE DISCONNECTED. ASKED NURSES YESTERDAY IF FAMILY CALLS PLEASE GET NUMBER SO THAT WE CAN UPDATE FACE SHEET. Addendum: 02/29/20 at 1051 by JERRICA DANGELO RN CM Amended: Links added.
--- NOTE | 2020-02-29 15:29 | NUR ---
[facility] SW unable to complete initial assessment or discuss post discharge disposition due to all phone numbers on face sheet due to all phone number being disconnected. Patient's nurse informed SW that patient's sister had not called hospital today but nurse will obtain contact phone number when she does so that SW/KAMRAN can follow up with her regarding discharge disposition. SW will continue to follow up.
[2020-02-29] MEDS: FUROSEMIDE 100 MG in SODIUM CHLORIDE 0.9% 100 ML IV SCH (17:33)
[2020-02-29] MEDS: ATORVASTATIN CALCIUM 40 MG TABLET PO SCH (21:21)
[2020-02-29] MEDS: IRON SUCROSE COMPLEX 100 MG in SODIUM CHLORIDE 0.9% 50 ML IV SCH (21:22)
--- NOTE | 2020-02-29 22:00 | NUR ---
NEW IV STARTED. PT CONTINUES ON LASIX DRIP. VOIDING. CLEAR YELLOW. STATES NO PAIN. ON BIPAP, OTHERWISE PT HAS DIFFICULTY BREATHING AND ANXIETY INCREASES. MEDICATIONS TOLERATED WELL. APPLIED VASELINE TO LIPS DUE TO SEVERE DRYNESS.
[2020-03-01 01:22] LABS: ABG BASE EXCESS -0.1 mmol/L (-2.0-3.0); ABG HCO3 23.9 mmol/L (21.0-28.0); ABG OXYGEN SATURATION 93.8 % (95.0-99.0); ABG PCO2 37 mmHg (35-48)
--- NOTE | 2020-03-01 01:25 | NUR ---
ABG DRAWN AT THIS TIME BY JAVIER CASTILLO. NO IMPROVEMENT FROM PREVIOUS ABG FROM 02/27.
[2020-03-01] MEDS: POTASSIUM CHLORIDE 20MEQ/100ML 100 ML IV PRN ×2 (01:38→10:21)
[2020-03-01] MEDS: LIDOCAINE HCL-MPF 1% 2ML VIAL IV PRN ×2 (01:38→10:22)
[2020-03-01] MEDS: FUROSEMIDE 100 MG in SODIUM CHLORIDE 0.9% 100 ML IV SCH ×2 (02:12→14:22)
[2020-03-01 03:00] VITALS: BP 143/80
[2020-03-01 05:05] LABS: HEMATOCRIT 31.4 % (42-54); MEAN CORPUSCULAR HEMOGLOBIN 27.5 pg (27.0-33.0); MEAN CORPUSCULAR HGB CONC 31.2 g/dL (32.0-36.0); MEAN CORPUSCULAR VOLUME 88.2 fL (79-99); NUCLEATED RED BLOOD CELLS 0.2 % (0.0-0.19); PLATELET COUNT (AUTO) 261 K/uL (130-400); RED BLOOD CELL COUNT(AUTO) 3.56 MIL/uL (4.50-6.20); RED CELL DISTRIBUTION WIDTH 16.1 % (11.0-15.5); WHITE BLOOD COUNT (AUTO) 10.9 K/uL (4.8-10.8)
[2020-03-01 05:21] LABS: CREATININE 3.6 mg/dL (0.5-1.5); MAGNESIUM 1.8 mg/dL (1.80-2.40); PHOSPHORUS 3.7 mg/dL (2.5-4.9); POTASSIUM 3.3 mmol/L (3.5-5.1)
[2020-03-01] MEDS: INSULIN HUMULIN R 100 UNIT/ML 3ML SQ SCH ×2 (06:40→11:30)
[2020-03-01] MEDS: MAGNESIUM 2GM PREMIX 50ML 50 ML IV SCH (06:48)
[2020-03-01 07:33] VITALS: BP 158/91
[2020-03-01] MEDS: CARVEDILOL 6.25 MG TABLET PO SCH (09:00)
[2020-03-01] MEDS: Vitamin B Complex/Vit C/Folic Acid PO SCH (09:00)
[2020-03-01] MEDS: POTASSIUM CHLORIDE 20 MEQ ERTAB PO SCH (09:00)
[2020-03-01] MEDS: ASPIRIN 81MG TAB.CHEW PO SCH (09:00)
[2020-03-01] MEDS: PANTOPRAZOLE 40 MG/VIAL IVP SCH (10:21)
[2020-03-01] MEDS: CEFEPIME HCL 1 GM VIAL IVP SCH (10:21)
[2020-03-01] MEDS: DOXYCYCLINE 100MG+NS 250ML 250 ML IV SCH (10:22)
[2020-03-01] MEDS: HEPARIN SODIUM 5000UNIT/ML 1ML VIAL SQ SCH (10:24)
--- NOTE | 2020-03-01 11:00 | NUR ---
DC PLAN SPOKE TO FLIGHT STEWARD. SISTER HAD SAID DNR/DNI. I CALLED SISTER JERRICA FERNANDEZ [phone]. TO VERIFY. WENT TO VOICE MAIL. PATIENT SAID IF HE HAD TO GO SOMEPLACE WOULD LIKE [facility]. IF HE GOES HOME THEN SISTER WANTS BEE FIRST. Addendum: 03/01/20 at 1103 by JERRICA DANGELO RN CM Amended: Links added.
--- NOTE | 2020-03-01 11:03 | NUR ---
DCP: [facility] met with pt who is on Bipap at this time. Pt was able to answer questions asked. Pt states he is now staying at sister Germaine Garcia's home [phone]. Pt gave SW permission to look thru his medicine bag and a cell phone and oxygen tank filler was located. Pt deferred questions to sister. Pt stated that at ne he wanted to go back to [facility]. SW called sister Germaine and discussed home situation.Per sister, Pt was in [facility] till February 12. At ne, sister brought pt to her home where she has 2 adult sons living with her and help her with pt. Pt states they gave up govt apt pt because he can no longer live alone. Sister reports pt is not well " in the head" and often hallucinates. Pt has no DME or in home care services. PCP is [facility] and [facility] is pharm of choice. Discussed Directives. Sister states pt never or had children. Their older brother is in [place] and she is only other sibling. Sister states that she if pt was to code, she wants no CPR done or intubation. Sister states she just wants pt to comfortable. Nurse Danyelle spoke to sister and verified requested for DNR/DNI. SW and nurse spoke to RONN Allan regarding family request. Sanjana wanting hospice discussed with family. SW called sister back and discussed hospice/GIP. Sister states she is in agreement and her daughter Faviola works with [facility] and she will have daughter contact SW. RERE to speak to niece and assist as needed Addendum: 03/01/20 at 1130 by RODRIGO GARCIA Amended: Links added.
[2020-03-01 11:32] VITALS: BP 151/80
--- NOTE | 2020-03-01 11:56 | NUR ---
DCP: [facility] Sw recd call from Faviola [facility], pt's niece who works for [facility]. Niece states she and her mother and in agreement with [employer] recommendations for hospice and inpt hospice if pt meets criteria. Niece gave verbal consent for referral to [facility]. CM and nurse notified. Lizbeth at [facility] notified and will contact family
--- NOTE | 2020-03-01 15:04 | NUR ---
IN HOSPICE Sw recd call from [place] at [facility]. Nurse Steffany Reyes [phone] due to arrive between 3:45 and 4 to evaluate and admit p to in hospice. SW notified Merna Tellez, dye house helper of above.
--- NOTE | 2020-03-01 17:22 | NUR ---
MITCH NARANJO NURSE ACCEPTED PATIENT FOR GIP. LET DR. APPLE KNOW SIGNED ORDERS. Addendum: 03/01/20 at 1723 by JERRICA DANGELO RN CM Amended: Links added.
== END 2020-03-01 03:59 | disposition hospice, inpatient (51) | DRG 280 ==
LOC: EDH 10:29 → EDHIP 11:32 → 2CH 23:32 → 2DH 02-21 15:39 → 2AH 02-24 22:15
PROVIDERS: ADMIT Internal Medicine Critical Care Medicine; ATTEND Internal Medicine Critical Care Medicine
PROC: 5A09357 Assistance with Respiratory Ventilation, Less than 24 Consecutive Hours, Continuous Positive Airway Pressure (ICD-10-PCS; principal; 2020-02-20)
PROC: 5A09357 Assistance with Respiratory Ventilation, Less than 24 Consecutive Hours, Continuous Positive Airway Pressure (ICD-10-PCS; 2020-02-21)
PROC: 5A09357 Assistance with Respiratory Ventilation, Less than 24 Consecutive Hours, Continuous Positive Airway Pressure (ICD-10-PCS; 2020-02-22)
PROC: 5A09357 Assistance with Respiratory Ventilation, Less than 24 Consecutive Hours, Continuous Positive Airway Pressure (ICD-10-PCS; 2020-02-23)
PROC: 5A09457 Assistance with Respiratory Ventilation, 24-96 Consecutive Hours, Continuous Positive Airway Pressure (ICD-10-PCS; 2020-02-23)
PROC: 5A09357 Assistance with Respiratory Ventilation, Less than 24 Consecutive Hours, Continuous Positive Airway Pressure (ICD-10-PCS; 2020-02-26)
PROC: 5A09457 Assistance with Respiratory Ventilation, 24-96 Consecutive Hours, Continuous Positive Airway Pressure (ICD-10-PCS; 2020-02-26)
PROC: 5A09357 Assistance with Respiratory Ventilation, Less than 24 Consecutive Hours, Continuous Positive Airway Pressure (ICD-10-PCS; 2020-02-29)
DX: I21.09 ST elevation (STEMI) myocardial infarction involving other coronary artery of anterior wall (principal); J18.9 Pneumonia, unspecified organism; J96.01 Acute respiratory failure with hypoxia; I50.43 Acute on chronic combined systolic (congestive) and diastolic (congestive) heart failure; I13.0 Hypertensive heart and chronic kidney disease with heart failure and stage 1 through stage 4 chronic kidney disease, or unspecified chronic kidney disease; N17.9 Acute kidney failure, unspecified; I82.611 Acute embolism and thrombosis of superficial veins of right upper extremity; N18.4 Chronic kidney disease, stage 4 (severe); I48.91 Unspecified atrial fibrillation; E11.22 Type 2 diabetes mellitus with diabetic chronic kidney disease; E87.6 Hypokalemia; D64.9 Anemia, unspecified; E11.51 Type 2 diabetes mellitus with diabetic peripheral angiopathy without gangrene; E66.01 Morbid (severe) obesity due to excess calories; Z66 Do not resuscitate; E78.5 Hyperlipidemia, unspecified; G47.33 Obstructive sleep apnea (adult) (pediatric); I25.10 Atherosclerotic heart disease of native coronary artery without angina pectoris; I25.5 Ischemic cardiomyopathy; M06.9 Rheumatoid arthritis, unspecified; T50.2X5A Adverse effect of carbonic-anhydrase inhibitors, benzothiadiazides and other diuretics, initial encounter; Z68.34 Body mass index [BMI] 34.0-34.9, adult; I25.2 Old myocardial infarction; Y92.89 Other specified places as the place of occurrence of the external cause; Z03.818 Encounter for observation for suspected exposure to other biological agents ruled out
CPT/HCPCS: 36415; 36600; 71045; 76770; 80048; 80053; 80061; 81001; 82550; 82728; 82803; 82948; 83540; 83550; 83605; 83735; 83874; 83880; 84100; 84132; 84145; 84439; 84443; 84484; 84550; 85014; 85018; 85025; 85027; 85610; 85730; 86850; 86900; 86901; 87040; 87486; 87581; 87633; 87635; 87798; 87804; 87807; 87880; 93005; 93306; 93356; 93970; 94660; C9113; G0378; J0282; J0330; J0461; J0583; J0692; J0885; J1265; J1644; J1650; J1756; J1940; J1956; J2250; J2260; J2405; J3475; J3480; J3490; J7060; Q9967

== ENCOUNTER 2020-03-01 16:00 | Inpatient (IN) | payer OTHER ==
[~2020-03-01] VITALS: Ht 172.7 cm; Wt 103.7 kg
[2020-03-01] MEDS ORDERED: MORPHINE SULFATE 2 MG/ML 1ML SYG IVP PRN ×2 (18:30→18:45)
[2020-03-01] MEDS ORDERED: ACETAMINOPHEN 650 MG SUPPOSITORY RC PRN (18:45)
[2020-03-01] MEDS ORDERED: GLYCOPYRROLATE 1 MG/5 ML SYRINGE IV PRN (18:45)
[2020-03-01] MEDS ORDERED: BISACODYL 10 MG SUPP.RECT RC PRN (18:45)
[2020-03-01] MEDS ORDERED: ONDANSETRON HCL 4 MG/2 ML VIAL IVP PRN (18:45)
[2020-03-01 19:00] VITALS: BP 131/55
[2020-03-02 07:24] VITALS: BP 154/94
--- NOTE | 2020-03-02 10:37 | NUR ---
RECEIVED CALL FROM YASMEEN HOROWITZ PT.'S NIECE. UPDATED ON STATUS AND QUESTIONS ANSWERED.
--- NOTE | 2020-03-02 11:47 | NUR ---
CM NOTE CM reviewed medical record. Pt is admitted under GIP hospice. CM to follow up if patient able to return home with hospice services. Addendum: 03/02/20 at 1148 by NICOLE FERRO CM Amended: Links added.
--- NOTE | 2020-03-02 15:03 | NUR ---
REPORT TO GORGE ROMERO RN.
--- NOTE | 2020-03-02 15:21 | NUR ---
PT. TRANSFERRED TO ROOM 331 VIA BED WITH BELONGINGS; NRB IN PLACE, ACCOMPANIED BY Bianka
[2020-03-02 19:00] VITALS: BP 174/66
[2020-03-02 23:00] VITALS: BP 150/94
[2020-03-03] MEDS: LORAZEPAM 2 MG/ML 1 ML VIAL IVP PRN ×2 (00:12→00:58)
[2020-03-03 08:12] VITALS: BP 154/84
--- NOTE | 2020-03-03 10:00 | NUR ---
LINK CRIME INVESTIGATOR SPECIAL AGENT ROUND STATED DC BIPAP AND START PT ON NONREBREATHER MASK AT 8L. PT VERBALIUZED UNDERSTANDING AND AGREED WITH POC.
[2020-03-03] MEDS: MORPHINE SULFATE 2 MG/ML 1ML SYG IVP PRN ×2 (15:02→22:20)
--- NOTE | 2020-03-03 15:07 | NUR ---
DISCOMFORT PT COMPLAINING OF GENERALIZED DISCOMFORT. STATED HE "WANTED THE MASK". PT WAS OFFERED PAIN MEDICATION, ANXIETY MEDICATION, ETC, TO WHICH HE STATED "NO I DONT WANT THAT I JUST WANT THE MASK". LINK REVENUE RESEARCH ANALYST NOTIFIED. STATED OK TO PUT PT BACK ON MASK. RT MADE AWARE
--- NOTE | 2020-03-03 16:19 | NUR ---
IV ACCESS PT DOES NOT HAVE IV ACCESS. THIS NURSE ATTEMPTED TO PLACE IV FOR ACCESS R/T ALL OF PT PRN MEDICATIONS BEING VIA IV ROUTE TO WHICH PT STATED "NO I DONT WANT IT". THIS NURSE EXPLAINED THAT THIS MIGHT POTENTIALLY BE THE ONLY ROUTE TO GIVE MEDS, HE STATED NO. PT IS ORIENTED X 3 AND ABLE TO MAKE OWN DECISIONS
--- NOTE | 2020-03-03 17:09 | NUR ---
HOSPICE NURSE ROUNDS Cody HOROWITZ RN FROM [facility] ROUNDED AT THIS TIME. MADE AWARE OF NO IV ACCESS, STATED PT HAS RIGHT TO MAKE THAT DECISION. AWARE OF BIPAP/NONREBREATHER SITUATION.
[2020-03-03 19:00] VITALS: BP 164/76
[2020-03-04 07:29] VITALS: BP 162/85
[2020-03-04] MEDS ORDERED: PROMETHAZINE HCL 25 MG/ML 1ML AMPULE IM PRN (10:00)
[2020-03-04] MEDS ORDERED: MEPERIDINE-PF 50 MG/ML SYG IM PRN (10:00)
[2020-03-04] MEDS ORDERED: LORAZEPAM 2 MG/ML 1 ML VIAL IVP PRN (10:00)
[2020-03-04 20:44] VITALS: BP 143/90
[2020-03-05 07:26] VITALS: BP 148/78
--- NOTE | 2020-03-05 11:16 | NUR ---
F/U visit Sw reviewed pt notes and made f/u visit to pt. Pt currently BIPAP again. SW spoke to pt's nurse Waqar and informed this was a GIP pt, why was BIPAP restarted? Per nurse, pt to dc to SNF per report he was given. RERE spoke to Martha at [facility] regarding pt and dc plan. Per Martha, she will have JAMILA Vásquez round on pt and start PO meds and clarify who is attending MD. Placement is the issue at this time. NHs are not accepting pt's and only hospice home accepting pts is [facility]. Family is agreeable to [facility] and [facility] will work on arrangements.
--- NOTE | 2020-03-05 11:41 | NUR ---
DCP: Ute recd call from Martha at [facility]. [facility] is accepting hospice pts. [facility] working on possible acceptance. Martha to recontact with status of dcp
--- NOTE | 2020-03-05 14:16 | NUR ---
[facility] vs [facility] Sw recd call from [facility]. They have sent referrals to [facility] and [facility] for pt. They are waiting for response and are hoping pt can dc tomorrow. [facility] to provide update
--- NOTE | 2020-03-05 15:17 | NUR ---
covid screening form done with mariella sutton and faxed to renetta PATIENT WAS TESTED ON 02/22, NEGATIVE RESULT 02/23, NOT TRAVEL RELATED, NO BARRIERS TO TRANSFER Addendum: 03/05/20 at 1518 by JAYASHREE HUGO RN CM Amended: Links added.
[2020-03-05] MEDS ORDERED: MORPHINE SULFATE 20MG/ML ORAL 0.25 ML PO PRN (21:00)
--- NOTE | 2020-03-05 21:05 | NUR ---
[facility]etta nurse anu ritter came to see the patient. she ordered morphine and ativan po prn and spoke to the patient about the medications and the nonrebreather. patient refused medications and nonrebreather. nurse says the case workers are trying to find a place for him.
[2020-03-06 00:51] VITALS: BP 151/94
[2020-03-06] MEDS: LORAZEPAM 1 MG TABLET PO PRN (02:01)
[2020-03-06 08:14] VITALS: BP 154/87
--- NOTE | 2020-03-06 09:37 | NUR ---
Spoke to Martha RN at [facility]. Discussed plan for pt. Informed Martha that per nurse, pt has refused po meds and venti mask. Pt has been on Bipap until this am when pt wanted to eat. Pt now on venti mask. Per Martha, all [facility] have refused pt who has no Medicaid. [facility] sent referral to [facility] and [facility]. They are waiting on response.
--- NOTE | 2020-03-06 13:27 | NUR ---
RD UPDATE PT WITH END STAGE RESPIRATORY FAILURE. HOSPICE/COMFORT MEASURES IN PLACE. PLEASURE FEEDS IN PLACE. RECOMMEND ENSURE NEEDED. PLEASE NOTIFY CONCERNS ARISE.
[2020-03-06 19:56] VITALS: BP 172/82
--- NOTE | 2020-03-06 20:15 | NUR ---
TEE MONROE RN FROM [facility] VISITED WITH PATIENT. VITALS STABLE. AFEBRILE. STATUS UPDATE GIVEN. NO CONCERNS VOICED AT THIS TIME. PATIENT AWAKE IN BED. BIPAP ON. RESP EVEN AND UNLABORED. NO SOB NOTED. REPOSITIONED FOR COMFORT. ORAL CARE GIVEN. PO FLUIDS ENCOURAGED AND TAKEN WELL AT THIS TIME. NO SIGNS OF DISTRESS NOTED. CALL LIGHT WITHIN REACH. WILL CONTINUE TO BE OBSERVED. Addendum: 03/06/20 at 6231 by WARREN ROJAS RN RN Amended: Links added.
[2020-03-07] MEDS: LORAZEPAM 1 MG TABLET PO PRN ×2 (06:10→15:49)
[2020-03-07 08:16] VITALS: BP 147/84
--- NOTE | 2020-03-07 08:28 | NUR ---
HOSPICE f/u Sw contacted Lizbeth at [facility] related to pt and dcp. Lizbeth to get update and get back with me.
--- NOTE | 2020-03-07 13:50 | NUR ---
DCP: [facility] WITH [facility] RERE recd call from Faviola pt's niece. DCP is to [facility]. Faviola talked to [facility] and states they are willing to accept by 6 today since they are not taking pt's tomorrow. Informed Faviola that pt is not [facility] pt, and [facility] will have to make all arrangements/transportation as well. Faviola to call office CM made aware.
--- NOTE | 2020-03-07 14:46 | NUR ---
RERE recd call from Martha at [facility]. Pt has been accepted to [facility], DME there and ambulance has been arranged and will be here between 4 and 4:30 OOHDNR has been faxed to [facility]. Nurse Ruthy to call report to [facility] office. Hospice nurse to come write dc orders nolan.. CM made aware of this
--- NOTE | 2020-03-07 16:31 | NUR ---
Report given to [facility] , ems here to last picker patient , [facility] , o2 at 2 liters non-rebreather mask, discharge paper packet given to him with orders given to EMS staff for [facility] no question or concerns at this time.
== END 2020-03-07 16:30 | DRG 280 ==
LOC: 2AH 16:00 → 3AH 03-02 15:30
PROVIDERS: ADMIT Internal Medicine Pulmonary Disease; ATTEND Internal Medicine Pulmonary Disease
PROC: 5A09457 Assistance with Respiratory Ventilation, 24-96 Consecutive Hours, Continuous Positive Airway Pressure (ICD-10-PCS; principal; 2020-03-01)
PROC: 5A09357 Assistance with Respiratory Ventilation, Less than 24 Consecutive Hours, Continuous Positive Airway Pressure (ICD-10-PCS; 2020-03-03)
PROC: 5A09357 Assistance with Respiratory Ventilation, Less than 24 Consecutive Hours, Continuous Positive Airway Pressure (ICD-10-PCS; 2020-03-04)
PROC: 5A09357 Assistance with Respiratory Ventilation, Less than 24 Consecutive Hours, Continuous Positive Airway Pressure (ICD-10-PCS; 2020-03-05)
PROC: 5A09357 Assistance with Respiratory Ventilation, Less than 24 Consecutive Hours, Continuous Positive Airway Pressure (ICD-10-PCS; 2020-03-06)
PROC: 5A09357 Assistance with Respiratory Ventilation, Less than 24 Consecutive Hours, Continuous Positive Airway Pressure (ICD-10-PCS; 2020-03-07)
DX: I21.4 Non-ST elevation (NSTEMI) myocardial infarction (principal); J96.01 Acute respiratory failure with hypoxia; J18.9 Pneumonia, unspecified organism; I50.43 Acute on chronic combined systolic (congestive) and diastolic (congestive) heart failure; I13.0 Hypertensive heart and chronic kidney disease with heart failure and stage 1 through stage 4 chronic kidney disease, or unspecified chronic kidney disease; I82.611 Acute embolism and thrombosis of superficial veins of right upper extremity; I42.9 Cardiomyopathy, unspecified; R62.7 Adult failure to thrive; I48.91 Unspecified atrial fibrillation; N18.9 Chronic kidney disease, unspecified; Z66 Do not resuscitate; E66.01 Morbid (severe) obesity due to excess calories; E11.22 Type 2 diabetes mellitus with diabetic chronic kidney disease; E78.5 Hyperlipidemia, unspecified; G47.33 Obstructive sleep apnea (adult) (pediatric); M06.9 Rheumatoid arthritis, unspecified; Z51.5 Encounter for palliative care; T50.2X5A Adverse effect of carbonic-anhydrase inhibitors, benzothiadiazides and other diuretics, initial encounter; Z68.34 Body mass index [BMI] 34.0-34.9, adult; Y92.89 Other specified places as the place of occurrence of the external cause; Z03.818 Encounter for observation for suspected exposure to other biological agents ruled out
CPT/HCPCS: 94660; G0378; J2060; J2175